=== PATIENT | male | born 1960 | race Caucasian/White ===

== ENCOUNTER 2017-10-20 09:45 | Inpatient (IN) | payer OTHER ==
[~2017-10-20] VITALS: Ht 165.1 cm; Wt 74.2 kg
[~2017-10-20 09:45] MED LIST: KEFLEX250 MG PO; LISI20 PO; TAMS.4ER PO
[2017-10-20 10:23] LABS: BASOPHILS ABSOLUTE AUTO 0.05 K/mm3 (0.00-0.23); BASOPHILS PERCENT AUTO 0 % (0-2); EOSINOPHILS ABSOLUTE AUTO 0.01 K/mm3 (0.00-0.68); EOSINOPHILS PERCENT AUTO 0 % (0-6); Hematocrit 41.9 % (37.0-53.0); Hemoglobin 15.5 g/dL (13.5-17.5); IMMATURE GRAN ABSOLUTE AUTO 0.08 K/mm3 (0.00-0.10); IMMATURE GRAN PERCENT AUTO 1 % (0-1); LYMPHOCYTES ABSOLUTE AUTO 1.39 K/mm3 (0.84-5.20); LYMPHOCYTES PERCENT AUTO 10 % (21-46); MONOCYTES ABSOLUTE AUTO 2.32 K/mm3 (0.16-1.47); MONOCYTES PERCENT AUTO 16 % (4-13); Mean Corpuscular HGB 33.3 pg (26.0-34.0); Mean Corpuscular Volume 90 fL (80-100); Mean Platelet Volume 10.1 fL (9.1-12.4); NEUTROPHILS ABSOLUTE AUTO 10.69 K/mm3 (1.96-9.15); NEUTROPHILS PERCENT AUTO 73 % (41-73); Platelet Count 166 K/mm3 (150-400); RDW Coefficient Variation 11.9 % (11.7-14.2); RDW Standard Deviation 39.2 fL (35.1-46.3); Red Blood Cell Count 4.65 M/mm3 (4.30-5.90); White Blood Cell Count 14.54 K/mm3 (4.00-11.30)
[2017-10-20 10:42] LABS: Alanine Aminotransfer (ALT/SGP 61 U/L (12-78); Albumin, Blood 3.6 g/dL (3.4-5.0); Albumin/Globulin Ratio 0.9 (0.8-1.8); Alk Phos 94 U/L (50-136); Anion Gap 15 mmol/L (6-16); Aspartate Aminotrans (AST/SGOT 55 U/L (12-37); Bilirubin, Total 2.1 mg/dL (0.1-1.0); Blood Urea Nitrogen 11 mg/dL (8-24); Bun/Creatinine Ratio 17.1 (12.0-20.0); CO2, Blood 26 mmol/L (21-32); Calcium, Blood 8.7 mg/dL (8.5-10.1); Chloride, Blood 82 mmol/L (98-108); Creatinine, Blood 0.64 mg/dL (0.60-1.20); Ethanol (Alcohol), Blood, Med 9 mg/dL; Globulin, Blood 4.1 g/dL (2.2-4.0); Glomerular Filtration Rate >60 (60-); Glucose, Blood 124 mg/dL (70-99); Magnesium, Blood 1.8 mg/dL (1.6-2.4); Potassium, Blood 3.3 mmol/L (3.5-5.5); Sodium, Blood 123 mmol/L (136-145); Total Protein, Blood 7.7 g/dL (6.4-8.2)
[2017-10-20 10:45] LABS: International Normalized Ratio 1.04; Prothrombin Time Results 10.7 Sec (9.7-11.5)
[2017-10-20 14:08] LABS: Phosphorus, Blood 3.2 mg/dL (2.5-4.9)
[2017-10-20] MEDS ORDERED: [UNRECOGNIZED DRUG - CODE] PO (14:14)
[2017-10-20 20:15] LABS: Anion Gap 9 mmol/L (6-16); Blood Urea Nitrogen 15 mg/dL (8-24); Bun/Creatinine Ratio 12.3 (12.0-20.0); CO2, Blood 28 mmol/L (21-32); Calcium, Blood 8.2 mg/dL (8.5-10.1); Chloride, Blood 87 mmol/L (98-108); Creatinine, Blood 1.22 mg/dL (0.60-1.20); Glomerular Filtration Rate >60 (60-); Glucose, Blood 123 mg/dL (70-99); Sodium, Blood 124 mmol/L (136-145)
[2017-10-21 00:15] LABS: Source, Urine Catheter
[2017-10-21 00:31] LABS: Bilirubin, Urine Neg (Neg); Blood, Urine Neg (Neg); Glucose Qualitative, Urine 2+ (Neg); Ketones, Urine 2+ (Neg); Leukocyte Esterase, Urine 1+ (Neg); Nitrite, Urine Neg (Neg); Protein, Urine 1+ (Neg); Specific Gravity, Urine 1.015 (1.003-1.022); Urobilinogen, Urine 2+ (Normal)
[2017-10-21 00:50] LABS: Appearance, Urine Clear (Clear); Bacteria Few /hpf; Color, Urine Amber (P-Yellow); Mucus Light (0-Heavy); Red Blood Cells, Urine Not Seen /hpf (0-2); Squamous Epithelial Cells Rare /hpf (Few); White Blood Cells, Urine Rare /hpf (0-5)
[2017-10-21 04:15] LABS: BASOPHILS ABSOLUTE AUTO 0.04 K/mm3 (0.00-0.23); BASOPHILS PERCENT AUTO 0 % (0-2); EOSINOPHILS ABSOLUTE AUTO 0.09 K/mm3 (0.00-0.68); EOSINOPHILS PERCENT AUTO 1 % (0-6); Hematocrit 34.3 % (37.0-53.0); Hemoglobin 12.2 g/dL (13.5-17.5); IMMATURE GRAN ABSOLUTE AUTO 0.06 K/mm3 (0.00-0.10); IMMATURE GRAN PERCENT AUTO 1 % (0-1); LYMPHOCYTES ABSOLUTE AUTO 1.31 K/mm3 (0.84-5.20); LYMPHOCYTES PERCENT AUTO 13 % (21-46); MONOCYTES ABSOLUTE AUTO 1.53 K/mm3 (0.16-1.47); MONOCYTES PERCENT AUTO 15 % (4-13); Mean Corpuscular HGB Conc 35.6 g/dL (31.5-36.5); Mean Platelet Volume 10.6 fL (9.1-12.4); NEUTROPHILS ABSOLUTE AUTO 7.23 K/mm3 (1.96-9.15); NEUTROPHILS PERCENT AUTO 70 % (41-73); Platelet Count 142 K/mm3 (150-400); RDW Standard Deviation 41.1 fL (35.1-46.3); White Blood Cell Count 10.26 K/mm3 (4.00-11.30)
[2017-10-21 04:17] LABS: Mean Corpuscular Volume 93 fL (80-100)
[2017-10-21 04:38] LABS: Magnesium, Blood 2.1 mg/dL (1.6-2.4)
[2017-10-21 05:02] LABS: Alanine Aminotransfer (ALT/SGP 40 U/L (12-78); Albumin, Blood 2.6 g/dL (3.4-5.0); Albumin/Globulin Ratio 0.9 (0.8-1.8); Alk Phos 61 U/L (50-136); Aspartate Aminotrans (AST/SGOT 41 U/L (12-37); Bilirubin, Total 1.6 mg/dL (0.1-1.0); Blood Urea Nitrogen 18 mg/dL (8-24); Bun/Creatinine Ratio 17.3 (12.0-20.0); CO2, Blood 26 mmol/L (21-32); Calcium, Blood 7.4 mg/dL (8.5-10.1); Chloride, Blood 101 mmol/L (98-108); Creatinine, Blood 1.04 mg/dL (0.60-1.20); Glomerular Filtration Rate >60 (60-); Glucose, Blood 105 mg/dL (70-99); Phosphorus, Blood 3.3 mg/dL (2.5-4.9); Potassium, Blood 3.1 mmol/L (3.5-5.5)
[2017-10-21 05:07] LABS: Anion Gap 9 mmol/L (6-16); Sodium, Blood 136 mmol/L (136-145); Total Protein, Blood 5.6 g/dL (6.4-8.2)
[2017-10-22 04:04] LABS: BASOPHILS ABSOLUTE AUTO 0.05 K/mm3 (0.00-0.23); BASOPHILS PERCENT AUTO 1 % (0-2); EOSINOPHILS ABSOLUTE AUTO 0.15 K/mm3 (0.00-0.68); EOSINOPHILS PERCENT AUTO 2 % (0-6); Hematocrit 36.2 % (37.0-53.0); Hemoglobin 12.7 g/dL (13.5-17.5); IMMATURE GRAN ABSOLUTE AUTO 0.04 K/mm3 (0.00-0.10); IMMATURE GRAN PERCENT AUTO 1 % (0-1); LYMPHOCYTES ABSOLUTE AUTO 1.19 K/mm3 (0.84-5.20); LYMPHOCYTES PERCENT AUTO 15 % (21-46); MONOCYTES ABSOLUTE AUTO 1.31 K/mm3 (0.16-1.47); MONOCYTES PERCENT AUTO 16 % (4-13); Mean Corpuscular HGB 33.4 pg (26.0-34.0); Mean Corpuscular HGB Conc 35.1 g/dL (31.5-36.5); Mean Corpuscular Volume 95 fL (80-100); Mean Platelet Volume 10.6 fL (9.1-12.4); NEUTROPHILS ABSOLUTE AUTO 5.26 K/mm3 (1.96-9.15); NEUTROPHILS PERCENT AUTO 66 % (41-73); Platelet Count 145 K/mm3 (150-400); RDW Coefficient Variation 12.4 % (11.7-14.2); RDW Standard Deviation 43.4 fL (35.1-46.3)
[2017-10-22 04:22] LABS: Alanine Aminotransfer (ALT/SGP 42 U/L (12-78); Albumin, Blood 2.3 g/dL (3.4-5.0); Albumin/Globulin Ratio 0.7 (0.8-1.8); Alk Phos 65 U/L (50-136); Anion Gap 8 mmol/L (6-16); Aspartate Aminotrans (AST/SGOT 46 U/L (12-37); Bilirubin, Total 0.9 mg/dL (0.1-1.0); Blood Urea Nitrogen 8 mg/dL (8-24); Bun/Creatinine Ratio 12.3 (12.0-20.0); CO2, Blood 28 mmol/L (21-32); Calcium, Blood 7.8 mg/dL (8.5-10.1); Chloride, Blood 106 mmol/L (98-108); Creatinine, Blood 0.65 mg/dL (0.60-1.20); Globulin, Blood 3.2 g/dL (2.2-4.0); Glomerular Filtration Rate >60 (60-); Glucose, Blood 96 mg/dL (70-99); Magnesium, Blood 1.8 mg/dL (1.6-2.4); Potassium, Blood 3.3 mmol/L (3.5-5.5); Sodium, Blood 142 mmol/L (136-145); Total Protein, Blood 5.5 g/dL (6.4-8.2)
[2017-10-23 04:27] LABS: BASOPHILS ABSOLUTE AUTO 0.04 K/mm3 (0.00-0.23); BASOPHILS PERCENT AUTO 1 % (0-2); EOSINOPHILS ABSOLUTE AUTO 0.14 K/mm3 (0.00-0.68); EOSINOPHILS PERCENT AUTO 2 % (0-6); Hematocrit 35.9 % (37.0-53.0); Hemoglobin 12.5 g/dL (13.5-17.5); IMMATURE GRAN ABSOLUTE AUTO 0.03 K/mm3 (0.00-0.10); IMMATURE GRAN PERCENT AUTO 0 % (0-1); LYMPHOCYTES ABSOLUTE AUTO 1.58 K/mm3 (0.84-5.20); LYMPHOCYTES PERCENT AUTO 20 % (21-46); MONOCYTES ABSOLUTE AUTO 1.73 K/mm3 (0.16-1.47); MONOCYTES PERCENT AUTO 21 % (4-13); Mean Corpuscular HGB 33.1 pg (26.0-34.0); Mean Corpuscular HGB Conc 34.8 g/dL (31.5-36.5); Mean Corpuscular Volume 95 fL (80-100); Mean Platelet Volume 9.8 fL (9.1-12.4); NEUTROPHILS ABSOLUTE AUTO 4.59 K/mm3 (1.96-9.15); NEUTROPHILS PERCENT AUTO 57 % (41-73); Platelet Count 164 K/mm3 (150-400); RDW Coefficient Variation 12.5 % (11.7-14.2); RDW Standard Deviation 43.7 fL (35.1-46.3); Red Blood Cell Count 3.78 M/mm3 (4.30-5.90); White Blood Cell Count 8.11 K/mm3 (4.00-11.30)
[2017-10-23 04:45] LABS: Anion Gap 9 mmol/L (6-16); Blood Urea Nitrogen 4 mg/dL (8-24); Bun/Creatinine Ratio 6.5 (12.0-20.0); CO2, Blood 26 mmol/L (21-32); Calcium, Blood 8.2 mg/dL (8.5-10.1); Chloride, Blood 103 mmol/L (98-108); Creatinine, Blood 0.61 mg/dL (0.60-1.20); Glomerular Filtration Rate >60 (60-); Glucose, Blood 100 mg/dL (70-99); Potassium, Blood 3.3 mmol/L (3.5-5.5); Sodium, Blood 138 mmol/L (136-145)
[2017-10-24 04:19] LABS: BASOPHILS ABSOLUTE AUTO 0.04 K/mm3 (0.00-0.23); BASOPHILS PERCENT AUTO 1 % (0-2); EOSINOPHILS PERCENT AUTO 4 % (0-6); Hematocrit 35.3 % (37.0-53.0); IMMATURE GRAN ABSOLUTE AUTO 0.04 K/mm3 (0.00-0.10); IMMATURE GRAN PERCENT AUTO 1 % (0-1); LYMPHOCYTES ABSOLUTE AUTO 1.56 K/mm3 (0.84-5.20); LYMPHOCYTES PERCENT AUTO 23 % (21-46); MONOCYTES ABSOLUTE AUTO 1.57 K/mm3 (0.16-1.47); MONOCYTES PERCENT AUTO 23 % (4-13); Mean Corpuscular HGB 32.4 pg (26.0-34.0); Mean Corpuscular Volume 95 fL (80-100); NEUTROPHILS ABSOLUTE AUTO 3.39 K/mm3 (1.96-9.15); NEUTROPHILS PERCENT AUTO 49 % (41-73); Platelet Count 203 K/mm3 (150-400); RDW Coefficient Variation 12.5 % (11.7-14.2)
[2017-10-24 04:40] LABS: Anion Gap 8 mmol/L (6-16); Blood Urea Nitrogen 6 mg/dL (8-24); CO2, Blood 26 mmol/L (21-32); Calcium, Blood 8.3 mg/dL (8.5-10.1); Chloride, Blood 106 mmol/L (98-108); Creatinine, Blood 0.66 mg/dL (0.60-1.20); Glomerular Filtration Rate >60 (60-); Glucose, Blood 98 mg/dL (70-99); Potassium, Blood 3.4 mmol/L (3.5-5.5); Sodium, Blood 140 mmol/L (136-145)
[2017-10-25 04:31] LABS: Anion Gap 7 mmol/L (6-16); Blood Urea Nitrogen 8 mg/dL (8-24); Bun/Creatinine Ratio 11.8 (12.0-20.0); CO2, Blood 27 mmol/L (21-32); Calcium, Blood 8.4 mg/dL (8.5-10.1); Chloride, Blood 106 mmol/L (98-108); Creatinine, Blood 0.68 mg/dL (0.60-1.20); Glomerular Filtration Rate >60 (60-); Glucose, Blood 102 mg/dL (70-99); Potassium, Blood 3.7 mmol/L (3.5-5.5); Sodium, Blood 140 mmol/L (136-145)
[2017-10-25] MEDS ORDERED: DOCU100 PO (14:33)
[2017-10-25] MEDS ORDERED: GABA300 PO (14:34)
[2017-10-25] MEDS ORDERED: Toprol Xl25 MG PO (14:34)
[2017-10-25] MEDS ORDERED: K-Dur20 MEQ PO (14:38)
== END 2017-10-25 15:45 | disposition home or self-care (01) | DRG 897 ==
LOC: ER 09:45 → ICUW 13:28 → ICUE 14:34 → ICUW 14:57
PROVIDERS: Emergency Medicine; Family Medicine; Hospitalist; Internal Medicine
PROC: 3E033XZ Introduction of Vasopressor into Peripheral Vein, Percutaneous Approach (ICD-10-PCS; principal; 2017-10-21)
DX: F10.239 Alcohol dependence with withdrawal, unspecified (principal); E87.1 Hypo-osmolality and hyponatremia; I95.9 Hypotension, unspecified; R73.9 Hyperglycemia, unspecified; E87.6 Hypokalemia; E86.0 Dehydration; R00.0 Tachycardia, unspecified; R26.9 Unspecified abnormalities of gait and mobility; K70.9 Alcoholic liver disease, unspecified; S20.212A Contusion of left front wall of thorax, initial encounter; S80.12XA Contusion of left lower leg, initial encounter; S40.022A Contusion of left upper arm, initial encounter; I10 Essential (primary) hypertension; D64.9 Anemia, unspecified; D69.59 Other secondary thrombocytopenia; W18.11XA Fall from or off toilet without subsequent striking against object, initial encounter; Y92.009 Unspecified place in unspecified non-institutional (private) residence as the place of occurrence of the external cause
CPT/HCPCS: 36415; 51701; 51702; 70450; 80048; 80053; 81001; 82947; 83605; 83690; 83735; 84100; 85025; 85610; 85730; 87040; 87086; 87493; 96374; 96375; 97110; 97116; 97162; 97530; 99285-25; G0480; G8978; G8979; J0360; J1650; J2060; J2550; J3411; J3475; J3480; J7030; J7042; J7060; J7120

== ENCOUNTER 2018-11-15 17:36 | Inpatient (IN) | payer OTHER ==
[~2018-11-15] VITALS: Ht 167.6 cm; Wt 72.1 kg
[~2018-11-15 17:36] MED LIST changes: +DOCU100 PO; +GABA300 PO; +K-Dur20 MEQ PO; +METO50ER PO; +[UNRECOGNIZED DRUG - CODE] PO
[2018-11-15 18:03] LABS: BASOPHILS ABSOLUTE AUTO 0.05 K/mm3 (0.00-0.23); BASOPHILS PERCENT AUTO 1 % (0-2); EOSINOPHILS PERCENT AUTO 0 % (0-6); Hematocrit 46.4 % (37.0-53.0); Hemoglobin 16.1 g/dL (13.5-17.5); IMMATURE GRAN ABSOLUTE AUTO 0.04 K/mm3 (0.00-0.10); IMMATURE GRAN PERCENT AUTO 0 % (0-1); LYMPHOCYTES ABSOLUTE AUTO 0.47 K/mm3 (0.84-5.20); LYMPHOCYTES PERCENT AUTO 5 % (21-46); MONOCYTES ABSOLUTE AUTO 1.38 K/mm3 (0.16-1.47); MONOCYTES PERCENT AUTO 13 % (4-13); Mean Corpuscular HGB 32.8 pg (26.0-34.0); Mean Corpuscular HGB Conc 34.7 g/dL (31.5-36.5); Mean Corpuscular Volume 95 fL (80-100); Mean Platelet Volume 10.1 fL (9.1-12.4); NEUTROPHILS ABSOLUTE AUTO 8.37 K/mm3 (1.96-9.15); NEUTROPHILS PERCENT AUTO 81 % (41-73); Platelet Count 149 K/mm3 (150-400); RDW Coefficient Variation 13.3 % (11.7-14.2); RDW Standard Deviation 46.2 fL (35.1-46.3); Red Blood Cell Count 4.91 M/mm3 (4.30-5.90); White Blood Cell Count 10.31 K/mm3 (4.00-11.30)
[2018-11-15 18:27] LABS: Alanine Aminotransfer (ALT/SGP 87 U/L (12-78); Albumin, Blood 3.8 g/dL (3.4-5.0); Albumin/Globulin Ratio 0.9 (0.8-1.8); Alk Phos 102 U/L (50-136); Anion Gap 14 mmol/L (6-16); Aspartate Aminotrans (AST/SGOT 215 U/L (12-37); Bilirubin, Total 1.4 mg/dL (0.1-1.0); Blood Urea Nitrogen 7 mg/dL (8-24); CO2, Blood 24 mmol/L (21-32); Calcium, Blood 9.1 mg/dL (8.5-10.1); Chloride, Blood 104 mmol/L (98-108); Creatinine, Blood 0.58 mg/dL (0.60-1.20); Ethanol (Alcohol), Blood, Med <3 mg/dL; Globulin, Blood 4.3 g/dL (2.2-4.0); Glomerular Filtration Rate >60 (60-); Glucose, Blood 120 mg/dL (70-99); Salicylate <1.7 mg/dL (2.8-20.0); Sodium, Blood 142 mmol/L (136-145); Total Protein, Blood 8.1 g/dL (6.4-8.2)
[2018-11-15 18:30] LABS: Thyroid Stimulating Hormone 0.994 uIU/mL (0.360-4.800)
[2018-11-15 18:38] LABS: Acetaminophen, Random <2.0 ug/mL (10.0-30.0)
[2018-11-15 18:48] LABS: Creatine Kinase MB 34.6 ng/mL (0.0-3.6)
[2018-11-15 18:53] LABS: Creatine Kinase MB Index 0.6 (0.0-4.0)
--- NOTE | 2018-11-15 20:25 | NUR ---
CALLED KIRA RODRIGUEZ RN TO RECEIVE REPORT. AWAITING PHYSICIAN ADMITTING ORDERS.
--- NOTE | 2018-11-15 20:34 | NUR ---
REPORT RECEIVED FROM ALLA RODRIGUEZ. PER ER STAFF, NOAH PLANNING TO SEE AND ASSESS PATIENT UPON ARRIVAL TO ICU.
[2018-11-15 21:25] LABS: Source, Urine Clean Catch
[2018-11-15 21:29] LABS: Bilirubin, Urine Neg (Neg); Blood, Urine 5+ (Neg); Glucose Qualitative, Urine 2+ (Neg); Ketones, Urine 4+ (Neg); Leukocyte Esterase, Urine Neg (Neg); Nitrite, Urine Neg (Neg); Protein, Urine 2+ (Neg); Specific Gravity, Urine 1.025 (1.003-1.022); Urobilinogen, Urine NORM (Normal)
--- NOTE | 2018-11-15 21:30 | NUR ---
ARRIVAL TO ICU PT ARRIVED TO ICU 4 APPROX 2110. PT CALM, COOPERATIVE BUT DEMONSTRATING SOME CIWA. SEE CIWA ASSESSMENT. PT ORIENTED TO PLACE, BUT UNSURE OF DATE. HR/BP ELEVATED. 02 90'S ON ROOM AIR. RR EVEN, UNLABORED. HISTORY COMPLETED WITH HELP FROM PT'S JANAE AND DAUGHTER KAE. PT MEDICATED FOR CIWA. PT LEFT WITH BED ALARM IN PLACE, CALL LIGHTIN REACH. PT AGREES TO CALL FOR NEEDS.
[2018-11-15 21:39] LABS: U Amphetamine Screen Not Detected; U Barbituate Screen Not Detected; U Benzodiazapine Screen DETECTED; U Buprenorphine Screen Not Detected; U Cannabinoids Screen Not Detected; U Cocaine Screen Not Detected; U Methadone Screen Not Detected; U Methamphetamine Screen Not Detected; U Opiates Screen Not Detected; U Oxycodone Screen Not Detected; U Phencyclidine Screen Not Detected; U Propoxyphene Screen Not Detected
[2018-11-15 21:41] LABS: Appearance, Urine Clear (Clear); Color, Urine Yellow (P-Yellow)
[2018-11-15 21:42] LABS: Amorphous Light (0-Heavy); Bacteria Not Seen /hpf; Hyaline Casts 0-2 /lpf (0-2); Mucus Light (0-Heavy); Red Blood Cells, Urine 0-2 /hpf (0-2); Squamous Epithelial Cells Not Seen /hpf (Few); White Blood Cells, Urine Not Seen /hpf (0-5)
--- NOTE | 2018-11-15 22:18 | NUR ---
CIWA ASSESSMENT AFTER INITIAL ATIVAN ADMINISTRATION, PT FELL ASLEEP FOR SHORT PERIOD. NOW PT AWAKE, ABLE TO HOLD CONVERSATION, BUT THINKS WE ARE IN VARIOUS PLACES OTHER THAN THE HOSPITAL. AT ONE POINT PT'S EYES ARE CLOSED AND HE IS HAS HIS LEFT HAND IN THE AIR AND HE STATES, "I AM DRINKING A BEER." PT CONTINUES TO BE SEVERELY SHAKEY, FIDGETING, TAKING BLANKETS AND MEDICAL EQUIPMENT OFF. MEDICATED PER EMAR.
--- NOTE | 2018-11-15 22:54 | NUR ---
PROVIDER COMMUNICATION SPOKE WITH DR. ZAMORA ABOUT PT'S MOST RECENT VITAL SIGNS AND TO CLARIFY VARIOUS FLUID ORDERS. SEE ORDERS FOR UPDATES.
[2018-11-16 03:49] LABS: Hematocrit 42.1 % (37.0-53.0); Hemoglobin 14.5 g/dL (13.5-17.5); Mean Corpuscular HGB 33.2 pg (26.0-34.0); Mean Corpuscular HGB Conc 34.4 g/dL (31.5-36.5); Mean Corpuscular Volume 96 fL (80-100); Mean Platelet Volume 10.1 fL (9.1-12.4); Platelet Count 127 K/mm3 (150-400); RDW Coefficient Variation 13.2 % (11.7-14.2); RDW Standard Deviation 47.3 fL (35.1-46.3); Red Blood Cell Count 4.37 M/mm3 (4.30-5.90); White Blood Cell Count 9.96 K/mm3 (4.00-11.30)
[2018-11-16 04:07] LABS: Alanine Aminotransfer (ALT/SGP 68 U/L (12-78); Albumin/Globulin Ratio 0.9 (0.8-1.8); Alk Phos 77 U/L (50-136); Anion Gap 6 mmol/L (6-16); Aspartate Aminotrans (AST/SGOT 161 U/L (12-37); Bilirubin, Total 1.4 mg/dL (0.1-1.0); Blood Urea Nitrogen 6 mg/dL (8-24); Bun/Creatinine Ratio 12.8 (12.0-20.0); CO2, Blood 27 mmol/L (21-32); Calcium, Blood 8.5 mg/dL (8.5-10.1); Chloride, Blood 108 mmol/L (98-108); Creatinine, Blood 0.47 mg/dL (0.60-1.20); Globulin, Blood 3.4 g/dL (2.2-4.0); Glomerular Filtration Rate >60 (60-); Glucose, Blood 136 mg/dL (70-99); Potassium, Blood 3.5 mmol/L (3.5-5.5); Sodium, Blood 141 mmol/L (136-145); Total Protein, Blood 6.4 g/dL (6.4-8.2)
--- NOTE | 2018-11-16 04:12 | NUR ---
CIWA REASSESSMENTS PT CONTINUES TO BE SHAKEY AND CONFUSED WHEN AWAKE, BUT HAS BEEN RESTING SOUNDLY WHEN STAFF NOT IN ROOM, SO PT HAS NOT BEEN MEDICATED WITH ATIVAN SINCE APPROX MIDNIGHT. HR/BP IMPROVED. BEDBATH GIVEN AND PT CALM, COOPERATIVE.
--- NOTE | 2018-11-16 06:17 | NUR ---
SUMMARY SINCE PREVIOUS NOTE, PT HAS SLEPT MAJORITY OF EVENING, AROUSING EASILY FOR REASSESSMENTS. WHEN AWAKE PT'S CIWA ELEVATED, BUT IMPROVED WHEN PT ASLEEP. DID MEDICATE ONE TIME WITH ATIVAN PT UNABLE TO SETTLE BACK TO SLEEP AND CIWA ELEVATED. PT CONTINUES TO BE INCONTINENT OF URINE. NOT USING CALL LIGHT FOR NEEDS. VITALS STABLE. SEE FLOWSHEETS/ASSESSMENTS.
--- NOTE | 2018-11-16 07:05 | NUR ---
REPORT TO ALLA KENYON TO ASSUME CARE. BEDSIDE ROUNDS COMPLETED.
--- NOTE | 2018-11-16 07:48 | NUR ---
ASSUMED CARE: REPORT RECIEVED FROM SHIRA Dill RN. ASSUMED CARE OF THIS PT AT APPROX 0700. ON ASSESSMENT, THE PT IS SLEEPING SOUNDLY. HE ROUSES & OPENS EYES TO VERBAL STIMULUS BUT QUICKLY FALLS BACK ASLEEP. CIWA SCORES CHARTED, MEDS PER EMAR. DRESSINGS TO VARIOUS WOUNDS ARE CDI. PT ON RA W/ O2 SATS > 92%. WILL CONTINUE TO MONITOR & UPDATE NEEDED.
--- NOTE | 2018-11-16 09:00 | NUR ---
DR RAIN: PROVIDER AT BEDSIDE TO SEE PT. UPDATED HER ON PT's STATUS & CURRENT CIWA SCORES. STS CONTINUED ICU STATUS & MONITORING. ORDERS FOR AM LABWORK PLACED. WILL CONTINUE TO MONITOR & UDPATE NEEDED.
--- NOTE | 2018-11-16 18:40 | NUR ---
SHIFT SUMMARY: NO ACUTE CHANGES THIS SHIFT. PT REMAINS A&O, CALM & COOPERATIVE. HE HAS RESTED WELL FOR MOST OF THE DAY, BECOMING RESTLESS THIS AFTERNOON & REQUESTING TO GET OOB. HE IS WEAK W/ STANDING & AMBULATION & ATTEMPTS TO SIT DOWN TOO QUICKLY W/ TX. NEEDS REMINDERS & DIRECTION. CIWA SCORES CHARTED W/ MEDS PER EMAR. PT CONTINUES ON RA W/ O2 SATS > 92%. MONITOR SHOWS ST W/ HR 100-120s. BP STABLE. PT VOIDING MOD AMNTS OF DARK YELLOW-BROWN URINE W/O DIFFICULTY, OCCASIONAL INCONTINENCE. DRESSINGS TO VARIOUS ABRASIONS REMAIN CDI. WILL CONTINUE TO MONITOR & REPORT OFF TO ONCOMING RN.
--- NOTE | 2018-11-16 21:27 | NUR ---
ASSUMED CARE OF PT, REPORT RCV'D FROM ALLA KENYON. PT ALERT AND MOSTLY ORIENTED, PLEASANT AND COOPERATIVE WITH CARE. PT VISIBLY TREMULOUS R>L. PT STATES TREMORS IN LEGS ARE BASELINE BUT NOT ARM/HAND TREMORS. PT EXPRESSES INCREASED ANXIETY AND IS REQUESTING MEDICATION TO REDUCE TREMORS AND ANXIETY. CIWA OF 9 AT THIS TIME. PT SIT, VSS. BED IN LOW LOCKED POSITION, SIDE RAILS UP, AND BED ALARM ON. SEE FULL SHIFT ASSESSMENT.
--- NOTE | 2018-11-16 22:14 | NUR ---
PT'S CALLED, UPDATED WITH PT'S STATUS.
[2018-11-17 03:43] LABS: BASOPHILS ABSOLUTE AUTO 0.05 K/mm3 (0.00-0.23); BASOPHILS PERCENT AUTO 1 % (0-2); EOSINOPHILS PERCENT AUTO 1 % (0-6); Hematocrit 40.8 % (37.0-53.0); Hemoglobin 13.8 g/dL (13.5-17.5); IMMATURE GRAN ABSOLUTE AUTO 0.05 K/mm3 (0.00-0.10); IMMATURE GRAN PERCENT AUTO 1 % (0-1); LYMPHOCYTES ABSOLUTE AUTO 2.09 K/mm3 (0.84-5.20); LYMPHOCYTES PERCENT AUTO 25 % (21-46); MONOCYTES PERCENT AUTO 16 % (4-13); Mean Corpuscular HGB 33.8 pg (26.0-34.0); Mean Corpuscular HGB Conc 33.8 g/dL (31.5-36.5); Mean Corpuscular Volume 100 fL (80-100); Mean Platelet Volume 10.8 fL (9.1-12.4); NEUTROPHILS ABSOLUTE AUTO 4.68 K/mm3 (1.96-9.15); NEUTROPHILS PERCENT AUTO 57 % (41-73); Platelet Count 128 K/mm3 (150-400); RDW Coefficient Variation 13.2 % (11.7-14.2); RDW Standard Deviation 49.2 fL (35.1-46.3); Red Blood Cell Count 4.08 M/mm3 (4.30-5.90); White Blood Cell Count 8.27 K/mm3 (4.00-11.30)
[2018-11-17 04:05] LABS: CO2, Blood 25 mmol/L (21-32); Chloride, Blood 110 mmol/L (98-108); Magnesium, Blood 2.2 mg/dL (1.6-2.4); Potassium, Blood 3.5 mmol/L (3.5-5.5); Sodium, Blood 144 mmol/L (136-145)
[2018-11-17 04:06] LABS: Alanine Aminotransfer (ALT/SGP 55 U/L (12-78); Albumin, Blood 2.7 g/dL (3.4-5.0); Albumin/Globulin Ratio 0.8 (0.8-1.8); Alk Phos 70 U/L (50-136); Anion Gap 9 mmol/L (6-16); Aspartate Aminotrans (AST/SGOT 115 U/L (12-37); Bilirubin, Total 1.6 mg/dL (0.1-1.0); Blood Urea Nitrogen 10 mg/dL (8-24); Bun/Creatinine Ratio 17.8 (12.0-20.0); Calcium, Blood 8.4 mg/dL (8.5-10.1); Creatinine, Blood 0.56 mg/dL (0.60-1.20); Globulin, Blood 3.3 g/dL (2.2-4.0); Glomerular Filtration Rate >60 (60-); Glucose, Blood 86 mg/dL (70-99); Phosphorus, Blood 2.8 mg/dL (2.5-4.9)
[2018-11-17 04:22] LABS: CPK Creatine Kinase 1613 U/L (39-308)
--- NOTE | 2018-11-17 06:26 | NUR ---
SHIFT SUMMARY NO ACUTE CHANGES OVERNIGHT. PT SLEPT SOUNDLY WITH NO OUTWARD SIGNS OF ETOH WITHDRAWAL. PT ASKED FOR ASSISTANCE REPOSITIONING ON ONE OCCASION AND WAS ABLE TO CORRECTLY IDENTIFY PERSON/PLACE/SITUATION, NO TREMORS NOTED. PT CONTINUES TO BE COOPERATIVE WITH CARE AND DENIES NEEDS. VSS T/O SHIFT. WILL REPORT TO DAYSHIFT NURSE.
--- NOTE | 2018-11-17 08:15 | NUR ---
ASSUMED CARE / DR RAIN: REPORT RECEIVED FROM ANGELO Dennis RN. ASSUMED CARE OF THIS PT AT APPROX 0700. ON ASSESSMENT, THE PT IS AWAKE, A&O. HE IS PLEASANT & COOPERATIVE W/ CARE. CIWA CHARTED. HE IS ON RA W/ O2 SATS > 92%. MONITOR SHOWS NSR W/ HR 80s, BP STABLE. PROVIDER AT BEDSIDE TO SEE PT. OKAY TO BE PCU STATUS AT THIS TIME. DIET ORDER ALSO REQUESTED. PT/OT ORDERS PLACED. WILL CONTINUE TO MONITOR & UPDATE NEEDED.
--- NOTE | 2018-11-17 18:12 | NUR ---
SHIFT SUMMARY / TRANSFER TO PCU: NO ACUTE CHANGES THIS SHIFT. PT REMAINS A&O, PLEASANT & COOPERATIVE. CIWA CHARTED. PT HAS REQUIRED NO MEDS PER EMAR FOR ETOH W/D THIS SHIFT. LS CLEAR T/O, PT ON RA W/ O2 SATS > 92%. MONITOR SHOWS SR-ST, HR 80-100s, BP STABLE. PT TOLERATING PO INTAKE WELL W/ NO C/O NAUSEA. VOIDING W/O DIFFICULTY, OCCASIONAL INCONTINENCE. URINE REMAINS DARK, SELENA IN COLOR. REPORT HAS BEEN GIVEN TO MATEUSZ Mccloud RN TO ASSUME CARE IN PCU. PT HAS BEEN TRANSFERRED TO ROOM PCU-10 & ALL PT BELONGINGS/ CHART HAVE BEEN TAKEN OUT W/ HIM.
--- NOTE | 2018-11-18 04:39 | NUR ---
END OF SHIFT SUMMARY PT ALERT AND COOPERATIVE WITH CARE. PT INITIALLY SCORED A COWS OF 5 BUT HAS SINCE BEEN SCORING 0 DUE TO HEAVILY SLEEPING. PT CONTINUES WITH HAND/LEG TREMORS BUT THESE HAVE LESSENED, PT STATES THE LEG TREMORS ARE SOMEHWAT BASELINE. PT HAS NOT REQUIRED LIBRIUM OR ATIVAN. PT STATES FEELING COMFOPRTABLE AND STATING THAT HE IS GOING TO USE THIS HOSPITALIZTION TO QUIT DRINKING. PT HAS HAD 1 LIQUID THIS SHIFT. CONTINUES TO BE UNSTEADY ON FEET REQUIRING TWO STAFF ASSIST TO BSC. PT USING CALL LIGHT APPROPRIATELY. PT HAS BEEN SNORING IN ROOM T/O MAJORITY OF NIGHT. CALL LIGHT WITHIN REACH, WILL CONTINUE TO MONITOR PT UNTIL SHIFT CHANGE.
--- NOTE | 2018-11-18 08:07 | NUR ---
PT FAMILY "" GIVEN UPDATE AFTER OBTAINING VERBAL PERMISSION FROM PT.
--- NOTE | 2018-11-18 09:41 | NUR ---
DISCUSSED PT'S STATUS WITH DR RAIN, REPORTS PT MAY GO HOME WITH [facility] WORKING WITH THERAPY.
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
--- NOTE | 2018-11-18 14:30 | NUR ---
PT'S ARRIVED TO PICK HIM UP AND BOTH WALKED UP TO NURSES STATION. HAD AID GET A WHEELCHAIR TO ESCORT PT OUT TO VEHICLE. ANSWERED 'S QUESTIONS, LEFT WITH DISCHARGE INSTRUCTIONS IN HAND. PT DC'D HOME IN STABLE CONDITION
== END 2018-11-18 14:28 | disposition home or self-care (01) | DRG 897 ==
LOC: ER 17:36 → ICUW 20:41 → ICUE 20:55 → PCU 11-17 18:13
PROVIDERS: Emergency Medicine; Internal Medicine; ADMIT Internal Medicine
DX: F10.231 Alcohol dependence with withdrawal delirium (principal); M62.82 Rhabdomyolysis; I95.9 Hypotension, unspecified; D69.6 Thrombocytopenia, unspecified; K70.9 Alcoholic liver disease, unspecified; E66.9 Obesity, unspecified; I10 Essential (primary) hypertension; F03.90 Unspecified dementia, unspecified severity, without behavioral disturbance, psychotic disturbance, mood disturbance, and anxiety; E86.0 Dehydration; S50.02XA Contusion of left elbow, initial encounter; S60.212A Contusion of left wrist, initial encounter
CPT/HCPCS: 36415; 71045; 73070; 73110; 80053; 81001; 82550; 82553; 83735; 84100; 84443; 85025; 85027; 93005; 93010; 96361; 96374; 96375; 96376; 97116; 97162; 97166; 97530; 99285-25; G0480; J1650; J2060; J2405; J3411; J3475; J7030; J7042